=== PATIENT | female | born 2000 | race Two or more races ===

== ENCOUNTER 2023-03-29 15:48 | Emergency (ER) | payer OTHER ==
[~2023-03-29] VITALS: Ht 144.8 cm; Wt 56.7 kg
[2023-03-29] MEDS ORDERED: SYNTHROID50 MCG PO (17:02)
[2023-03-29 19:28] LABS: HEMATOCRIT 40.1 % (36.0-45.00); HEMOGLOBIN 13.4 g/dL (12.0-15.00); MEAN CELL VOLUME 84.2 fL (80.00-100.00); MEAN CORPUSCULAR HEMOGLOBIN 28.2 pg (27.00-32.0); MEAN CORPUSCULAR HGB CONC 33.5 g/dl (32.0-36.0); PLATELET COUNT 304 K/uL (150-450); RED BLOOD COUNT 4.77 M/uL (4.00-6.00); RED CELL DISTRIBUTION WIDTH 13.9 % (11.5-14.5)
== END 2023-03-29 21:29 | disposition home or self-care (01) ==
LOC: ER 15:49
PROVIDERS: General Practice
DX: J06.9 Acute upper respiratory infection, unspecified (principal); Z88.8 Allergy status to other drugs, medicaments and biological substances; Z20.822 Contact with and (suspected) exposure to COVID-19
CPT/HCPCS: 36415; 99284; J1100